=== PATIENT | female | born 1995 | race Caucasian/White ===

== ENCOUNTER 2016-07-05 14:00 | Emergency (ER) | payer BC ==
[~2016-07-05] VITALS: Ht 162.6 cm; Wt 91.5 kg
[~2016-07-05 14:00] MED LIST: FLUT16SP24; LORA5TAB; ONDA4TAB35 PO; PULM180; TRAM50TA2 PO
[2016-07-05 14:02] VITALS: Ht 162.6 cm; Wt 91.5 kg
[2016-07-05] MEDS ORDERED: LIDOCAINE 1% (MDV) 20 ML INJ SC ONE (16:00)
--- NOTE | 2016-07-05 16:24 | RADRPT ---
PROCEDURE: XR Foot 3 Views. CLINICAL INDICATION: Pain and trauma TECHNIQUE: AP, oblique and lateral views of the left foot were obtained. The images were reviewed on a PACS workstation. COMPARISON: None. FINDINGS: The osseous structures are intact. No destructive bony lesions are identified. Interosseous spaces are normal. Potential deformity of the nail of the first toe is observed. IMPRESSION: Potential deformity of the nail of the first toe. Correlation with physical exam is recommended. Otherwise, no visualized traumatic injury. If there is high clinical suspicion for additional traumatic injury, further evaluation with CT shou ld be considered. RPTAT: AA .Adam Gill MD, MD Date Time Electronically viewed and signed by .Adam Gill MD, on 07/05/2016 16:24 .P/
[2016-07-05] MEDS ORDERED: HYDROCODONE/APAP (5/325) TAB PO ONE (17:00)
[2016-07-05] MEDS ORDERED: IBUP-1542 PO (17:50)
[2016-07-05] MEDS ORDERED: HYDR-906 PO (17:50)
[2016-07-05] MEDS ORDERED: CEPH-443 PO (17:51)
--- NOTE | 2016-07-05 18:09 | ERD ---
ER Documentation Chief Complaint Date/Time DATE: 07/05/16 TIME: 18:03 Chief Complaint dropped washing machine on toe left big toe HPI Patient is a 21-year-old female presents to the emergency department with left big toe pain after having a washing machine dropped onto it. Patient reports helping her parents move earlier this morning when the washing machine accidentally fell onto her left foot. Patient reports pain localized to left big toe. Patient also has a toenail avulsion. Patient does report minimal pain when walking. Patient denies any fevers, chills, nausea, vomiting, shortness of breath, leg pain, ankle pain or foot pain. Patient denies any previous injuries to the affected extremity. Patient is up-to-date with her vaccinations. ROS All systems reviewed and are negative except as per history of present illness. Medications Home Meds Active Scripts Cephalexin* (Keflex*) 500 Mg Capsule, 500 MG PO QID for 7 Days, CAP Prov:SHAUNA RANGEL PA-C 07/05/16 Hydrocodone/Acetaminophen (Sapulpa 5-325 Tablet) 1 Each Tablet, 1 TAB PO Q6H Y for PAIN, #7 TAB Prov:SHAUNA RANGEL PA-C 07/05/16 Ibuprofen* (Motrin*) 600 Mg Tab, 600 MG PO Q6, #30 TAB Prov:SHAUNA RANGEL PA-C 07/05/16 Ondansetron Hcl* (Zofran* ODT) 4 mg -ODT Tab.disper, 4 MG PO Q8 Y for NAUSEA AND /OR VOMITING, #14 TAB Prov:YANCY LEE SEPARATOR OPERATOR 09/01/14 Tramadol HCl (Tramadol HCl) 50 Mg Tab, 50 MG PO Q6 Y for PAIN, #20 TAB Prov:YANCY LEE SEPARATOR OPERATOR 09/01/14 Reported Medications Fluticasone Propionate* (Flonase* Nasal) 16 Gm [place].susp 08/03/10 Budesonide (Pulmicort) 1 Ea [place] 08/03/10 Loratadine (Children's Claritin) 5 Mg Tab.chew 08/03/10 Allergies Allergies: Coded Allergies: Banana (Verified Allergy, Mild, SWOLLEN INFLAMMED LIPS, 08/03/10) Uncoded Allergies: EGGS (Allergy, Mild, ITCHY SKIN; UPSET STOMACH, 08/03/10) PEANUTS (Allergy, Mild, SWOLLEN INFLAMMED LIPS; UPSET STOMACH, 08/03/10) TREE NUTS (Allergy, Mild, SWOLLEN LIPS; UPSET STOMACH, 08/03/10) PMhx/Soc Medical and Surgical Hx: pt denies Surgical Hx History of Surgery: No Anesthesia Reaction: No Hx Neurological Disorder: No Hx Respiratory Disorders: Yes (ASTHMA; LAST ATTCK 3 YEARS AGO) Hx Cardiac Disorders: No Hx Psychiatric Problems: No Hx Miscellaneous Medical Probl: Yes (migraine) Hx Alcohol Use: No Hx Substance Use: No Hx Tobacco Use: No Smoking Status: Never smoker FmHx Family History: No diabetes Physical Exam Vitals Vital Signs Date Time Temp Pulse Resp B/P Pulse Ox O2 Delivery O2 Flow Rate FiO2 07/05/16 14:02 98.5 101 18 127/72 96 Physical Exam GENERAL: Well-developed, well-nourished female. Appears in no acute distress. HEAD: Normocephalic, atraumatic. EYES: Pupils are equally reactive bilaterally. EOMs grossly intact. No conjunctival erythema. ENT: Moist mucous membranes. No uvula deviation. No kissing tonsils. NECK: Supple. No meningismus. Normal range of motion of the neck. LUNG: Clear to auscultation bilaterally. No rhonchi, wheezing, rales or coarse breath sounds. HEART: Regular rate and rhythm. No murmurs, rubs or gallops. EXTREMITIES: Equal pulses bilaterally. No peripheral clubbing, cyanosis or edema. No unilateral leg swelling. NEUROLOGIC: Alert and oriented. Moving all four extremities without any difficulty. Normal speech. Steady gait. SKIN: Normal color. Warm and dry. No rashes or lesions. LEFT FOOT: No swelling, ecchymosis noted to the patient's foot. First digit toenail appears to be partially avulsed. Minimal bleeding. Normal range of motion of the ankle and knee. Decreased range of motion of the first big toe secondary to pain. Normal range of motion of digits 2 through 5. Tender to palpation of the IPJ of the first toe. Nontender palpation of the midfoot, lateral foot, ankle. Sensation intact to light touch. Neurovascularly intact. ( Able to plantarflex, dorsiflex, arin foot, invert foot, raise big toe.) 2+ DP and DT pulses. Results 24 hrs Current Medications Medications (Trade) Dose Ordered Sig/Brooke Route PRN Reason Start Time Stop Time Status Last Admin Dose Admin Lidocaine (Xylocaine 1% (Mdv) 20 ml) 20 ml ONCE ONCE SC 07/05/16 16:00 07/05/16 16:01 DC Acetaminophen/ Hydrocodone Bitart (Sapulpa (5/325)) 1 tab ONCE ONCE PO 07/05/16 17:00 07/05/16 17:01 DC 07/05/16 16:57 Procedures/MDM ED COURSE: The patient was stable throughout ED course. I kept the patient and/or family informed of laboratory and diagnostic imaging results throughout the ED course. DIAGNOSTIC IMAGING: Read by radiologist. DIAGNOSTIC IMAGING REPORT Patient: OLGA LERNER : 1995 Age: 21 Sex: F MR #: [id number] DOS: 07/05/16 1534 Ordering MD: HSAUNA RANGEL PA-C Location: [facility] Room/Bed: PROCEDURE: XR Foot 3 Views. CLINICAL INDICATION: Pain and trauma TECHNIQUE: AP, oblique and lateral views of the left foot were obtained. The images were reviewed on a PACS workstation. COMPARISON: None. FINDINGS: The osseous structures are intact. No destructive bony lesions are identified. Interosseous spaces are normal. Potential deformity of the nail of the first toe is observed. IMPRESSION: Potential deformity of the nail of the first toe. Correlation with physical exam is recommended. Otherwise, no visualized traumatic injury. If there is high clinical suspicion for additional traumatic injury, further evaluation with CT should be considered. RPTAT: AA .Adam Gill MD, MD Date Time Electronically viewed and signed by .Adam Gill MD, MD on 07/05/2016 16:24 .P/ CC: SHAUNA RANGEL PA-C PROCEDURES: Toenail Removal by me: Patient's foot was cleansed with Betadine and normal saline prior to toenail removal. Anesthesia: 1% lidocaine Digital Block Location: left big toe Technique: from nail bed, vertical split, twisting towards remaining nail. Packing: Non-adherent dressing applied Complications: None Recommend bid dressing changes and warm water soaks. MEDICATIONS GIVEN: Sapulpa Patient tolerated medication well with no adverse reactions. Patient reported improvement in pain. F MEDICAL DECISION MAKING: This is a 21-year-old female who presents with left big toe pain status post a washing machine falling on her foot earlier today. She also has a toenail avulsion of her left big toe. Vital signs were reviewed. Patient was afebrile. Xrays showed Potential deformity of the nail of the first toe. Correlation with physical exam is recommended. Otherwise, no visualized traumatic injury. If there is high clinical suspicion for additional traumatic injury, further evaluation with CT should be considered. Patient's first big toenail was completely removed as described in procedure note. Patient tolerated procedure well. Patient was advised that it would take 3-6 months for toenail to completely regrow. Given these findings, the patient's presentation is most consistent with toe nail avulsion and toe contusion. I have a much lower clinical concern for ankle dislocation, tarsal bone fracture, metatarsal fracture, phalangeal fracture, stress fracture, lisfranc injury, gout, DVT, compartment syndrome. At this time, unable to rule out any tendon and ligament injuries. Given the patient's toenail that was exposed prior to arrival to the ED, I will treat the patient with a course of antibiotics. PRESCRIPTIONS: Ibuprofen, Sapulpa, Keflex DISCHARGE: At this time, patient is stable for discharge and outpatient management. RICE therapy and ROM exercises were advised to avoid stiffness. I have instructed the patient to follow-up with his/her primary care physician in 1-2 days. I have discussed with the patient the possibility of needing to see an homeland security program specialist for further workup and imaging if the pain persists. I have instructed the patient to promptly return to the ER for any new or worsening symptoms including increased pain, swelling, redness, warmth or fever. The patient and/or family expressed understanding of and agreement with this plan. All questions were answered. Home care instructions were provided. Departure Diagnosis: Primary Impression: Nail avulsion, toe Encounter type: initial encounter Qualified Code: S91.209A - Nail avulsion, toe, initial encounter Additional Impression: Injury of toe Encounter type: initial encounter Laterality: left Qualified Code: S99.922A - Injury of toe, left, initial encounter Condition: Stable Patient Instructions: Sprain Toe Additional Instructions: Call your primary care doctor TOMORROW for an appointment during the next 1-2 days.See the doctor sooner or return here if your condition worsens before your appointment time. SHAUNA RANGEL PA-C July 05, 2016 18:09
== END 2016-07-05 18:29 | disposition home or self-care (01) ==
LOC: FTE 14:00
DX: S91.209A Unspecified open wound of unspecified toe(s) with damage to nail, initial encounter (principal); J45.909 Unspecified asthma, uncomplicated; W20.8XXA Other cause of strike by thrown, projected or falling object, initial encounter; Y92.9 Unspecified place or not applicable; Z91.010 Allergy to peanuts
CPT/HCPCS: 11730; 73630; 99283; Z7610

== ENCOUNTER 2016-09-26 13:27 | Day surgery (SDC) | payer BC ==
[~2016-09-26] VITALS: Ht 160 cm; Wt 87.5 kg
[~2016-09-26 13:27] MED LIST changes: +CEPH-443 PO; +HYDR-906 PO; +IBUP-1542 PO
[2016-09-26 14:04] VITALS: Ht 160 cm; Wt 87.5 kg
[2016-09-26] MEDS ORDERED: SINGULAIR PO (14:21)
[2016-09-26] MEDS ORDERED: ALLERGY SHOT (14:21)
[2016-09-26] MEDS ORDERED: AMITRIPTYLINE PO (14:21)
[2016-09-26] MEDS ORDERED: ERYTHROMYCIN PO (14:21)
[2016-09-26 14:37] VITALS: BP 106/56; PULSE 76; RESP 16
--- NOTE | 2016-09-26 15:24 | OPPN ---
Date/Time of Note Date/Time of Note DATE: 09/26/16 TIME: 15:23 Operative Report Preoperative Diagnosis Chronic diarrhea Lower abdominal pain Postoperative Diagnosis Internal hemorrhoids Random biopsies were taken to rule out microscopic colitis Operation/Procedure Performed Colonoscopy and biopsy Provider: EDMUNDO GUIDO MD Anesthesia Type: MAC Estimated blood loss: none Transfusion Required: no Specimens Random colon biopsy Grafts/Implants: none Complications: no EDMUNDO GUIDO MD Sep 26, 2016 15:24
[2016-09-26 16:01] VITALS: BP 104/66; PULSE 75; RESP 14
--- NOTE | 2016-09-26 17:54 | GILP ---
DATE OF PROCEDURE: 09/26/2016 PROCEDURE PERFORMED: Colonoscopy and biopsy. SURGEON: Aimee Perez MD PREOPERATIVE DIAGNOSIS: 1. Lower abdominal pain. 2. Chronic diarrhea. POSTOPERATIVE DIAGNOSES: 1. Colonoscopy all the way to the cecum and into the terminal ileum. 2. Normal terminal ileum. 3. Internal hemorrhoids. 4. Random biopsies were taken to rule out microscopic colitis. INDICATIONS FOR PROCEDURE: Ms. Hellen Alvarez is a 21-year-old female patient who had chronic had diarrhea and lower abdominal pain. Patient was scheduled for colonoscopy for further evaluation. The procedure and possible complications were well explained to the patient. She understood and consented to the procedure. DESCRIPTION OF PROCEDURE: Under influence of anesthesia, the colonoscope was carefully introduced in the rectum. Under direct vision it was advanced all the way to the cecum and into the terminal ileum. Findings: The terminal ileum was normal. The colonic mucosa was normal. Random biopsies were taken to rule out microscopic colitis. The patient was noted to have internal hemorrhoids. The patient tolerated the procedure very well. There was no complication from the procedure. At the end of procedure she was awake with stable vital signs and she was discharged home in care of her family. IMPRESSION: Please see postop diagnoses. PLAN: 1. Bentyl 10 mg p.o. t.i.d. p.r.n. for pain and diarrhea. 2. Await histopathology report. Dictated By: MD MICHAEL Isbell/shamar/jenelle Green#: [id number]/Document#: [id number]
== END 2016-09-26 15:53 | disposition home or self-care (01) ==
LOC: GIL 13:27
PROVIDERS: ATTEND Internal Medicine Gastroenterology
DX: K64.8 Other hemorrhoids (principal)
CPT/HCPCS: 45380; 84703; 88305; Z7610

== ENCOUNTER 2017-11-09 23:44 | Emergency (ER) | END 2017-11-10 04:16 | disposition left against medical advice (07) ==